=== PATIENT | male | born 1960 | race Caucasian/White ===

== ENCOUNTER → 2018-12-31 | Outpatient (CLI) | payer MEDICAID ==
--- NOTE | 2018-12-31 12:43 | CARD ---
MR#: [id number] Date of Study: 12/31/2018 Ordering Physician: BRUCE AUSTIN, Referring Physician: Albert LANGFORD: Jhoana Lee APPROVED REPORT EXAM: Two-dimensional and M-mode echocardiogram with Doppler and color Doppler. Other Information Quality : AverageHR: 59bpm INDICATION Dyspnea 2D DIMENSIONS RVDd2.1 (2.9-3.5cm)Left Atrium(2D)3.0 (1.6-4.0cm) IVSd0.9 (0.7-1.1cm)Aortic Root(2D)2.5 (2.0-3.7cm) LVDd4.8 (3.9-5.9cm)LVOT Diameter2.1 (1.8-2.4cm) PWd0.8 (0.7-1.1cm)LVDs2.6 (2.5-4.0cm) FS (%) 45.6 %SV83.4 ml LVEF(%)76.9 (>50%) Aortic Valve AoV Peak Alen.115.9cm/sAoV VTI21.4cm AO Peak GR.5.4mmHgLVOT Peak Alen.96.8cm/s LVOT VTI 15.06cmAO Mean GR.3mmHg HUY (VMAX)2.32qp6UYO (VTI)2.46cm2 AI P 1/2 Khgi024df Mitral Valve MV E Hcauvnvy44.7cm/sMV DECEL [id number] MV A Ghirt[place]ik89.4cm/sMV OPA58en E/A Ratio1.4MVA (PHT)3.02cm2 TDI E/Lateral E'14.9E/Medial E'14.4 Pulmonary Valve PV Peak Xgfwqeyv983.3cm/sPV Peak Grad.4mmHg Tricuspid Valve TR P. Jyaglyfp600vt/sTR Peak Gr.23mmHg Pulmonary Vein S1 Uiojizyr19.4cm/sD2 Wmpmsupw74.5cm/s PVa [id number] LEFT VENTRICLE The left ventricle is normal size. There is normal left ventricular wall thickness. The left ventricu lar systolic function is normal. The Ejection Fraction is 60-65%. There is normal LV segmental wall m otion. The left ventricular diastolic function and filling is normal for age. RIGHT VENTRICLE The right ventricle is normal size. There is normal right ventricular wall thickness. The right ventr icular systolic function is normal. ATRIA The left atrium size is normal. The right atrium size is normal. Eustachian valve is noted in the rig ht atrium. The interatrial septum is intact with no evidence for an atrial septal defect or patent fo ramen ovale as noted on 2-D or Doppler imaging. AORTIC VALVE The aortic valve is thickened but opens well. Doppler and Color Flow revealed moderate aortic regurgi tation. There is no significant aortic valvular stenosis. 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 There is mild prolapse. There is no mitral valve stenosis. Doppler and Color-flow revealed mild mitral regurgitation. TRICUSPID VALVE The tricuspid valve is normal in structure and function. Doppler and Color Flow revealed trace to mil d tricuspid regurgitation. PULMONIC VALVE The pulmonic valve is not well visualized. Doppler and Color Flow revealed mild pulmonic valvular reg urgitation. GREAT VESSELS The aortic root is normal in size. The ascending aorta is normal in size. The IVC is normal in size a nd collapses >50% with inspiration. PERICARDIAL EFFUSION There is no pleural effusion. There is no evidence of significant pericardial effusion. Critical Notification Critical Value: No <Conclusion> The left ventricular systolic function is normal. The Ejection Fraction is 60-65%. There is normal LV segmental wall motion. Moderate aortic regurgitation. Mild MV prolapse with mild mitral regurgitation. Trace to mild tricuspid regurgitation. There is no evidence of significant pericardial effusion. Signed by : Jalen Cosme, Electronically Approved : 12/31/2018 12:43:23
== END | disposition home or self-care (01) ==
LOC: ECHO 11:24
PROVIDERS: ATTEND Specialist
DX: I08.8 Other rheumatic multiple valve diseases (principal)
CPT/HCPCS: 93306